=== PATIENT | male | born 1970 | race African-American/Black ===

== ENCOUNTER 2019-10-05 20:52 | Emergency (ER) | payer MEDICARE, MEDICAID, SELFPAY ==
--- NOTE | ~2019-10-05 | XR_ITS ---
EXAMINATION: XR chest 2V DATE: 10/05/2019 22:26 INDICATION: Cough and chest tightness TECHNIQUE: PA and lateral views of the chest were obtained. COMPARISON: None FINDINGS: Small lung volumes. Retrocardiac opacity consistent with small to moderate sized hiatal hernia. Mild airspace opacities at the left lower lung zone which could represent atelectasis and/or pneumonia. No pulmonary edema, pleural effusion or pneumothorax. Heart size is normal. Mild to moderate thoracic s pondylosis. Chronic T12 compression fracture seen on lumbar spine radiograph dated 03/28/2016. IMPRESSION: 1. Small lung volumes with mild opacities in the left lower lung zone which could represent atelectas is or pneumonia. 2. Small to moderate hiatal hernia. Reviewed, dictated and finalized at location [facility] [employer] IMPRESSION: 1. Small lung volumes with mild opacities in the left lower lung zone which cou ld represent atelectasis or pneumonia. 2. Small to moderate hiatal hernia.
[2019-10-05 20:54] VITALS: BP 193/118; PULSE 92; RESP 22; TEMP 35.7; O2SAT 97
--- NOTE | 2019-10-05 21:17 | ED.GENADULT ---
HPI - General Adult General Chief complaint: Unspecified Stated complaint: wants resp tx, and rash at groin Time Seen by Provider: 10/05/19 21:14 Source: patient and RN notes reviewed Mode of arrival: ambulatory Limitations: no limitations History of Present Illness HPI narrative: Pt is a 48 y/o male who presents to the ED with c/o rash on his rt groin starting 5 days ago. He notes that he has a Hx of sleep apnea, and states that he currently uses an inhaler at home. Pt notes that he had trouble breathing earlier today, and states that part of the reason he chose to be seen in the ED this evening was to receive a breathing treatment.He denies chest pain or leg swelling. He notes that he has also recently noticed a rash and several bumps near his rt groin. Pt reports associated penile pain and mild dysuria, but denies any penile discharge. He states that he has also recently had a productive cough. Pt denies any Hx of STD's, and notes that he hasn't had sexual intercourse for awhile. complaint: Rash Onset (ago): day(s) (5) Location: right (rt groin) Associated symptoms: cough (productive) and other (itching near rash on rt groin; bumps on rt groin; mild dysuria; penile pain) Related Data Allergies Allergy/AdvReac Type Severity Reaction Status Date / Time No Known Allergies Allergy Unverified 10/05/19 21:41 Review of Systems Review of Systems: Narrative: CONSTITUTIONAL: Denies fever, chills, or sweats. RESPIRATORY: Reports productive cough. Denies dyspnea. GASTROINTESTINAL: Denies abdominal pain, nausea, vomiting, or diarrhea. GENITOURINARY: Reports mild dysuria and penile pain. Denies penile discharge or hematuria. SKIN: Reports rash, bumps, and itching on rt groin. All systems reviewed & are unremarkable except as noted in HPI and below PMFSH Past Medical History Medical History HLD (hyperlipidemia) HTN (hypertension) Urethritis Surgical History Surgical History No significant past surgical history Social History Social History Smoking status: Never smoker Exam Narrative: Exam Narrative: GENERAL: Well-appearing, well-nourished, and in no acute distress. HEAD: Normocephalic, atraumatic. EYES: PERRLA and EOMI. ENT: Nares clear, no rhinorrhea or epistaxis. Mucous membranes moist. NECK: Supple. CHEST: Coarse breath sounds. No respiratory distress. No wheezing. No tachypnea. HEART: Regular rate and rhythm. No murmur heard. Normal peripheral pulses. ABDOMEN: Obese abdomen. Soft, nontender, nondistended, normal active bowel sounds. Excoriation in abdominal fold, evidence of folliculitis over the suprapubic area. No abscess. No vesicles. No blisters. : No tenderness or edema of the testicles. Penis is uncircumcised, no discharge, no erythema or edema of the glans. EXTREMITIES: Normal range of motion. No edema. SKIN: Warm, dry, no rash. NEURO: No focal deficits. Alert and oriented. Course Course Emergency Course: Patient presented for evaluation of malodorous urine and concern for urinary tract infection. Patient does have some risk factors for sexual transmitted infection, states he has never been diagnosed with this in the past. Patient has evidence of folliculitis, no evidence of herpes, no evidence of chlamydia on exam. No testicular tenderness, erythema or edema. No lesions on the penis or testicles. Given history of unprotected intercourse, patient wanted to be treated for sexual transmitted infection that was administered in the emergency department. For the patient's urine sample, will treat with Keflex outpatient. No signs of pyelonephritis at this point. While in the ED, the patient repeatedly keeps asking for breathing treatment, despite having no respiratory distress, no wheezing, no hypoxia, no increased work of breathing. He has no chest pain. He is walking arou
[2019-10-05] MEDS: IPRATROPIUM BR 0.02% INH SOLN 0.5 MG/2.5 ML VIAL INHALATION (21:55)
[2019-10-05] MEDS: ALBUTEROL SULFATE NEB 2.5 MG/0.5 ML INH 5 MG INHALATION (21:55)
[2019-10-05 21:56] VITALS: PULSE 81; RESP 20
[2019-10-05 22:00] VITALS: BP 144/88; PULSE 88; RESP 17; O2SAT 97
[2019-10-05 22:09] VITALS: PULSE 85
[2019-10-05] MEDS: BETAMETHASONE/CLOTRIMAZOLE CR 15 GM TUBE 1 APPLIC TOPICAL (22:12)
[2019-10-05 23:30] VITALS: BP 155/88; PULSE 99; RESP 12; O2SAT 95
[2019-10-05 23:38] LABS: Add Urine Microscopic? YES; Appearance Urine Clear (Clear); Bacteria Urine Trace /hpf; Bilirubin Urine Negative (Negative); Blood Urine 1+ (Negative); Color Urine Yellow (Yellow); Glucose Urine UA Negative (Negative); Ketones Urine Negative (Negative); Leukocyte Esterase Ur 2+ LEU/UL (Negative); Mucus Urine Rare /lpf; Nitrate Urine Negative (Negative); Protein Urine Negative (Negative); RBC Urine 0-2 /hpf (0-2); Specific Grav Ur 1.023 (1.001-1.035); Squamous Epithelial Cell Urine Few /hpf (Few); WBC Urine 31-50 /hpf
[2019-10-06 00:40] VITALS: BP 133/98; PULSE 97; RESP 19; O2SAT 97
[2019-10-06] MEDS: cefTRIAXone 250 MG VIAL IM (00:47)
[2019-10-06] MEDS: AZITHROMYCIN 250 MG TABLET 1000 MG PO (00:47)
== END 2019-10-06 00:40 | disposition home or self-care (01) ==
PROVIDERS: Emergency Provider Emergency Medicine
DX: N39.0 Urinary tract infection, site not specified (principal); I10 Essential (primary) hypertension; E78.5 Hyperlipidemia, unspecified
CPT/HCPCS: 71046; 81001; 87086; 87491; 87591; 94640; 96372; 99283; A9270; J0696

== ENCOUNTER 2022-03-24 07:44 | Emergency (ER) | payer MEDICARE, MEDICAID, SELFPAY ==
[2022-03-24 07:48] VITALS: BP 141/87; PULSE 85; RESP 16; TEMP 36.6; O2SAT 97
--- NOTE | 2022-03-24 08:01 | ED.GENADULT ---
HPI - General Adult General Chief complaint: Recheck/Abnormal Lab/Rx Stated complaint: high blood pressure Time Seen by Provider: 03/24/22 07:47 Source: RN notes reviewed History of Present Illness HPI narrative: Patient presents emergency department from home for hypertension. Patient states she has a history of hypertension and is supposed to be on hydrochlorothiazide and amlodipine. He states that he has been out of his hydrochlorothiazide for approximately 2 weeks states he had his amlodipine filled to begin a month but he lost his prescription states is no longer able to get to his PCP and was wishing to get his blood pressure medications refilled states he did have a mild headache earlier this morning but states that is now resolved he denies any fevers or chills chest pain shortness of breath abdominal pain nausea vomiting or any other symptoms Related Data Home Medications Medication Instructions Recorded Confirmed hydrochlorothiazide 25 mg tablet mg 03/24/22 Allergies Allergy/AdvReac Type Severity Reaction Status Date / Time No Known Allergies Allergy Unverified 10/05/19 21:41 Review of Systems Review of Systems: Gen.: Denies fevers or chills Eyes: Denies eye pain or visual change ENT: Denies congestion Respiratory: Denies shortness of breath or cough CV: Denies chest pain or palpitations GI: Denies abdominal pain nausea, emesis or diarrhea Musculoskeletal: Denies back pain or muscle pain Neuro: Denies numbness, tingling, weakness or focal weakness Skin: Denies rash Except as documented, all other systems reviewed and negative [facility] Past Medical History Medical History (Updated 03/24/22 @ 08:26 by Jean Fairchild DO) HLD (hyperlipidemia) HTN (hypertension) Urethritis Surgical History Surgical History No significant past surgical history Social History Social History Smoking status: Never smoker Exam Narrative: APPEARANCE: No acute distress, nontoxic, resting in bed EYES: EOMI HEENT: Normocephalic, atraumatic, OMM RESPIRATORY: No respiratory distress Clear to auscultation bilaterally with no rhonchi wheezing or rales. CARDIOVASCULAR: Regular rate and rhythm without murmurs rubs or gallops. ABDOMINAL: Soft, nontender, nondistended, no rebound or guarding MUSCULOSKELETAl: Moves all extremities. No clubbing, cyanosis or edema. NEURO: Awake and alert. Following commands, speech normal, no focal deficits SKIN:: Warm, dry. No rashes lesions or abrasions PSYCHIATRIC: Normal affect/mood, Course Course Emergency Course: Initial blood work was ordered on the patient as patient has had no blood work at our facility and requesting hydrochlorothiazide refill that time I did order amlodipine. Following this 1 to go draw lab work and patient refusing lab work. Patient had had amlodipine ordered also refusing amlodipine stating he only wishes to have hydrochlorothiazide. Did have nursing staff with me in the room and I explained several times the patient that hydrochlorothiazide is a diuretic acting on the kidneys and that before I feel comfortable prescribing hydrochlorothiazide for the patient I would want to check his renal function as well as his electrolytes the patient became very upset at this stating they would not be obtaining blood from him states that he has had his blood work drawn before in the past and has been normal I again reiterated to the patient that I would not feel comfortable prescribing hydrochlorothiazide without lab testing and at that time the patient eloped from the facility Vital Signs Vital signs: Vital Signs Temperature 97.9 F 03/24/22 07:48 Pulse Rate 85 03/24/22 07:48 Respiratory Rate 16 03/24/22 07:48 Blood Pressure 141/87 H 03/24/22 07:48 Pulse Oximetry 97 03/24/22 07:48 Oxygen Delivery Room Air 03/24/22 07:48 Temperature 97.9 F 03/24/22
--- NOTE | 2022-03-24 08:11 | PC.NURSE ---
pt refused blood work drawn.
--- NOTE | 2022-03-24 08:24 | PC.NURSE ---
This RN went in to the room to administer the ordered amlodipine. The pt refused the amlodipine stating that it does not work for him and that he needs hydrochlorothiazide. I told EDP Dr. Fairchild who says he will not give the pt hydrochlorothiazide without CMP and CBCD. Dr. Fairchild explained this multiple times to the pt with this RN in the room. Pt getting agitated and still refusing blood work saying that he has had his blood drawn before and it is fine. Pt then storms out of the room threatening to call the [employer] and the [employer] [facility] because Dr. Fairchild will not prescribe his medication. Dr. Fairchild offered to refer pt to a new PCP so he would be able to get in sooner. Pt refuses and walks out the ambulance bay door.
== END 2022-03-24 08:29 | disposition left against medical advice (07) ==
PROVIDERS: Emergency Provider Emergency Medicine
DX: I10 Essential (primary) hypertension (principal); E78.5 Hyperlipidemia, unspecified
CPT/HCPCS: 99281